=== PATIENT | female | born 1945 | race Caucasian/White ===

== ENCOUNTER 2017-08-31 08:43 | Day surgery (SDC) | payer MEDICARE, MEDICAID ==
[2017-08-31] MEDS ORDERED: Lactated Ringer's 1,000 ML IV ONE (09:59)
[2017-08-31] MEDS ORDERED: Propofol 10 mg/ml Inj (20 ML) ONE (11:25)
[2017-08-31] MEDS ORDERED: Lidocaine 2% MPF (5 ml) Inj ONE (11:25)
[2017-08-31 12:04] VITALS: TEMP 98
[2017-08-31 12:19] VITALS: BP 147/78; PULSE 78; RESP 16; O2SAT 99
== END 2017-08-31 12:19 | disposition home or self-care (01) ==
LOC: H.ENDO 08:43
PROVIDERS: ATTEND Internal Medicine Gastroenterology
DX: Z12.11 Encounter for screening for malignant neoplasm of colon (principal); E11.9 Type 2 diabetes mellitus without complications; E78.5 Hyperlipidemia, unspecified; E03.9 Hypothyroidism, unspecified; I10 Essential (primary) hypertension; K64.1 Second degree hemorrhoids; K62.1 Rectal polyp; K57.30 Diverticulosis of large intestine without perforation or abscess without bleeding; D12.5 Benign neoplasm of sigmoid colon
CPT/HCPCS: 45380; 45385; 88305; J2704; J7120

== ENCOUNTER 2017-11-18 12:26 | Emergency (ER) | payer MEDICARE, MEDICAID ==
--- NOTE | 2017-11-18 13:21 | ED PDOC ---
HPI: General Adult Time Seen by Provider: 11/18/17 12:58 Chief Complaint (Nursing): Flu-like Symptoms Chief Complaint (Provider): Flu-like symptoms History Per: Patient History/Exam Limitations: no limitations Onset/Duration Of Symptoms: Days (x3) Current Symptoms Are (Timing): Still Present Additional Complaint(s): Jenni Medellin is a 72 year old female, with a past medical history of diabetes and hypertension, who was brought to the emergency department via EMS complaining of fever, chest pain, body aches, generalized weakness, and decreased appetite onset for x3 days. Patient reports chest pain with deep breaths. She did not take any medication for symptoms. She denies any coughs, congestion, nausea, vomit or diarrhea. No further medical complaints. PMD: [facility] Past Medical History Reviewed: Historical Data, Nursing Documentation, Vital Signs Vital Signs: Last Vital Signs Temp 100.5 F H 11/18/17 15:39 Pulse 89 11/18/17 15:39 Resp 16 11/18/17 15:39 BP 149/67 11/18/17 15:39 Pulse Ox 97 11/18/17 15:55 - Medical History PMH: Depression, Diabetes, HTN, Hypercholesterolemia, Hypothyroidism - Surgical History Surgical History: No Surg Hx - Family History Family History: States: Unknown Family Hx - Social History Current smoker - smoking cessation education provided: No Alcohol: None Drugs: Denies - Home Medications Home Medications: Ambulatory Orders Medication Instructions Recorded Unobtainable 08/31/17 - Allergies Allergies/Adverse Reactions: Allergies Allergy/AdvReac Type Severity Reaction Status Date / Time No Known Allergies Allergy Verified 08/31/17 09:57 Review of Systems ROS Statement: Except As Marked, All Systems Reviewed And Found Negative Constitutional: Positive for: Fever, Weakness (generalized ), Other (body aches) ENT: Negative for: Nose Congestion Cardiovascular: Positive for: Chest Pain Respiratory: Negative for: Cough Gastrointestinal: Positive for: Other (decreased appetite). Negative for: Nausea, Vomiting, Diarrhea Physical Exam - Reviewed Nursing Documentation Reviewed: Yes Vital Signs Reviewed: Yes - Physical Exam Appears: Positive for: Non-toxic Head Exam: Positive for: ATRAUMATIC, NORMAL INSPECTION, NORMOCEPHALIC Skin: Positive for: Normal Color, Warm, Dry Eye Exam: Positive for: Normal appearance, EOMI, PERRL ENT: Positive for: Normal ENT Inspection Neck: Positive for: Painless ROM, Supple Cardiovascular/Chest: Positive for: Regular Rate, Rhythm. Negative for: Murmur Respiratory: Positive for: Normal Breath Sounds (clar b/l). Negative for: Respiratory Distress Gastrointestinal/Abdominal: Positive for: Normal Exam, Soft. Negative for: Tenderness, Guarding, Rebound Back: Positive for: Normal Inspection. Negative for: L CVA Tenderness, R CVA Tenderness, Vertebral Tenderness Extremity: Positive for: Normal ROM. Negative for: Tenderness, Deformity, Swelling Neurologic/Psych: Positive for: Alert, Oriented. Negative for: Motor/Sensory Deficits - Laboratory Results Result Diagrams: 11/18/17 13:45 11/18/17 13:45 - ECG O2 Sat by Pulse Oximetry: 97 (RA) Pulse Ox Interpretation: Normal Medical Decision Making Medical Decision Making: Initial Impression: Viral illness Initial Plan: --VBG Shock Panel --EKG --CMP --Troponin I --Urine dipstick --CBC w/ differential --PTT --PT --Chest two views (PA/LAT) [RAD] --Tylenol 325mg tab 650 mg PO --Motrin tab 600 mg PO --Blood culture --Urinalysis --Reevaluation 14:16 CXR FINDINGS: LUNGS: No active pulmonary disease. PLEURA: No significant pleural effusion identified. No pneumothorax apparent. CARDIOVASCULAR: No radiographic findings to suggest acute or significant cardiovascular disease. Right shoulder replacement. Severe degenerative changes left shoulder. OSSEOUS STRUCTURES: No significant abnormalities. VISUALIZED UPPER ABDOMEN: Normal. OTHER FINDINGS: None. IMPRESSION: No active disease. 16:30 --Patient will be signed out to Dr. Garcia, pending repeat Troponin and CT angio chest Scribe Attestation: Documented by Deandre Lewis, acting as a scribe for Estela Suarez MD Provider Scribe Attestation: All medical record entries made by the Scribe were at my direction and personally dictated by me. I have reviewed the chart and agree that the record accurately reflects my personal performance of the history, physical exam, medical decision making, and the department course for this patient. I have also personally directed, reviewed, and agree with the discharge instructions and disposition. Disposition - Disposition Forms: [employer] (Maldivian)
[2017-11-18 13:55] LABS: BASO # 0.1 K/uL (0.0-0.2); BASO % 0.6 % (0.0-2.0); EOS # 0.1 K/uL (0.0-0.7); EOS % 0.7 % (0.0-4.0); HEMOGLOBIN 13.9 g/dL (12.0-16.0); LYMPH # 1.4 K/uL (1.0-4.3); LYMPH % 12.2 % (20.0-40.0); MEAN CELL VOLUME 85.6 fl (81.0-99.0); MEAN CORPUSCULAR HEMOGLOBIN 27.7 pg (27.0-31.0); MEAN CORPUSCULAR HGB CONC 32.4 g/dL (33.0-37.0); MEAN PLATELET VOLUME 8.8 fl (7.2-11.7); MONO # 1.4 K/uL (0.0-0.8); NEUT # 8.5 K/uL (1.8-7.0); NEUT % 74.5 % (50.0-75.0); RBC 5.01 Mil/uL (3.80-5.20); RED CELL DISTRIBUTION WIDTH 13.5 % (11.5-14.5); WHITE BLOOD COUNT 11.5 K/uL (4.8-10.8)
[2017-11-18 14:02] LABS: VENOUS BLOOD GAS BASE EXCESS 5.4 mmol/L (0.0-2.0); VENOUS BLOOD GAS PCO2 42 mmHg (40-60); VENOUS BLOOD GAS PO2 35 mm/Hg (30-55); VENOUS BLOOD PH 7.46 (7.32-7.43)
[2017-11-18 14:11] LABS: ALBUMIN 4.2 g/dL (3.5-5.0); ALT/SGPT 31 U/L (9-52); AST/SGOT 28 U/L (14-36); BLOOD UREA NITROGEN 11 mg/dl (7-17); CALCIUM 9.9 mg/dL (8.4-10.2); GFR AFRICAN-AMERICAN > 60; GFR NON-AFRICAN AMERICAN > 60
[2017-11-18 14:28] LABS: SQUAMOUS EPITHIAL 2 /hpf (0-5); URINE BACTERIA RARE (<OCC); URINE BILIRUBIN NEGATIVE (NEGATIVE); URINE BLOOD MODERATE (NEGATIVE); URINE CLARITY SLIGHTY-CLOUDY (Clear); URINE COLOR YELLOW (YELLOW); URINE GLUCOSE (UA) 50 mg/dL (Normal); URINE LEUKOCYTE ESTERASE SMALL Leu/uL (Negative); URINE NITRATE NEGATIVE (NEGATIVE); URINE PROTEIN 30 mg/dL (NEGATIVE)
[2017-11-18 14:37] LABS: INR 1.1 (0.9-1.2); PROTHROMBIN TIME 12.3 Seconds (9.8-13.1)
[2017-11-18 14:38] LABS: PARTIAL THROMBOPLASTIN TIME 27.9 Seconds (25.6-37.1)
--- NOTE | 2017-11-18 15:24 | RAD ---
HISTORY: Fever COMPARISON: No prior. TECHNIQUE: Chest PA and lateral FINDINGS: LUNGS: No active pulmonary disease. PLEURA: No significant pleural effusion identified. No pneumothorax apparent. CARDIOVASCULAR: No radiographic findings to suggest acute or significant cardiovascular disease. Right shoulder replacement. Severe degenerative changes left shoulder. OSSEOUS STRUCTURES: No significant abnormalities. VISUALIZED UPPER ABDOMEN: Normal. OTHER FINDINGS: None. IMPRESSION: No active disease.
[2017-11-18 15:55] VITALS: O2SAT 97
[2017-11-18] MEDS ORDERED: Iodixanol 320 MG/ML 100 ML BOTTLE IV ONE (17:06)
[2017-11-18] MEDS ORDERED: Sodium Chloride 0.9% 50 ML IV ONE (17:06)
--- NOTE | 2017-11-18 18:07 | CT ---
PROCEDURE: CT Chest with contrast (Pulmonary Angiogram) HISTORY: Chest pain, of low-grade fever COMPARISON: None available. TECHNIQUE: Axial computed tomography images were obtained of the chest in the pulmonary arterial phase of enhancement. Coronal and sagittal reformatted images were created and reviewed. Intravenous contrast dose: 90 cc Visipaque 320 Mean Hounsfield unit values in the main pulmonary artery: 252.30 Radiation dose: Total exam DLP = 390.31 mGy-cm. This CT exam was performed using one or more of the following dose reduction techniques: Automated exposure control, adjustment of the mA and/or kV according to patient size, and/or use of iterative reconstruction technique. FINDINGS: PULMONARY ARTERIES: Unremarkable. No pulmonary embolism. AORTA: No acute findings. No thoracic aortic aneurysm. LUNGS: Prominent interstitial markings and thickening of interlobular septa suggests a component of pulmonary vascular congestion. PLEURAL SPACES: Unremarkable. No effusion or pneuomothorax. HEART: Unremarkable. No cardiomegaly. No significant pericardial effusion. LYMPH NODES: No lymphadenopathy. BONES, CHEST WALL: Unremarkable. No fracture or destructive lesion OTHER FINDINGS: Unremarkable. IMPRESSION: Unremarkable CT pulmonary angiogram. No pulmonary embolus.
[2017-11-18 18:51] VITALS: BP 131/61; PULSE 79; RESP 19
--- NOTE | 2017-11-18 18:51 | ED PDOC ---
- Laboratory Results Result Diagrams: 11/18/17 13:45 11/18/17 13:45 - ECG O2 Sat by Pulse Oximetry: 97 (RA) Medical Decision Making Medical Decision Making: Recd pending CTA chest Accession No. : [id number] Patient Name / ID : REILLY CHE / [id number] Exam Date : 11/18/2017 17:07:16 ( Approved ) Study Comment : Sex / Age : F / 72Y Creator : Kishan Byrd MD Dictator : Kishan Byrd MD Director Music : Software Licensing Executive : Kihsan Byrd MD Approver2 : Report Date : 11/18/2017 18:06:29 My Comment : PROCEDURE: CT Chest with contrast (Pulmonary Angiogram) HISTORY: Chest pain, of low-grade fever COMPARISON: None available. TECHNIQUE: Axial computed tomography images were obtained of the chest in the pulmonary arterial phase of enhancement. Coronal and sagittal reformatted images were created and reviewed. Intravenous contrast dose: 90 cc Visipaque 320 Mean Hounsfield unit values in the main pulmonary artery: 252.30 Radiation dose: Total exam DLP = 390.31 mGy-cm. This CT exam was performed using one or more of the following dose reduction techniques: Automated exposure control, adjustment of the mA and/or kV according to patient size, and/or use of iterative reconstruction technique. FINDINGS: PULMONARY ARTERIES: Unremarkable. No pulmonary embolism. AORTA: No acute findings. No thoracic aortic aneurysm. LUNGS: Prominent interstitial markings and thickening of interlobular septa suggests a component of pulmonary vascular congestion. PLEURAL SPACES: Unremarkable. No effusion or pneuomothorax. HEART: Unremarkable. No cardiomegaly. No significant pericardial effusion. LYMPH NODES: No lymphadenopathy. BONES, CHEST WALL: Unremarkable. No fracture or destructive lesion OTHER FINDINGS: Unremarkable. IMPRESSION: Unremarkable CT pulmonary angiogram. No pulmonary embolus. given symptoms per cdc guidelines age >65 treat empiric tamiflu, followup PMD Repeat vitals afebrile, all results explained and family agrees w plan Disposition Counseled Patient/Family Regarding: Studies Performed, Diagnosis, Need For Followup, Rx Given - Clinical Impression Clinical Impression: Influenza-like symptoms, UTI (urinary tract infection) - POA Present On Arrival: None - Disposition Referrals: [facility] [Outside] Disposition: Routine/Home Disposition Time: 20:01 Condition: STABLE Additional Instructions: Drink plenty of fluids, take medications as directed, return to ER for any new or worsening symptoms Prescriptions: Cephalexin [Keflex] 250 mg PO BID #10 capsule Ibuprofen [Motrin Tab] 600 mg PO Q6 PRN #15 tab PRN Reason: Pain, Moderate (4-7) Oseltamivir [Tamiflu] 75 mg PO BID #10 cap Instructions: Flu, Adult (DC), Urinary Tract Infection, Adult (DC) Forms: [employer] (Turkish)
[2017-11-18 19:54] VITALS: TEMP 98.1
--- NOTE | 2017-11-19 19:14 | CARD ---
APPROVED REPORT EKG Measurement Heart [id number] 140P30 [id number] <Conclusion> Normal sinus rhythm Normal ECG
== END 2017-11-18 20:11 | disposition home or self-care (01) ==
LOC: H.ER 12:26
DX: N39.0 Urinary tract infection, site not specified (principal); J11.1 Influenza due to unidentified influenza virus with other respiratory manifestations; E03.9 Hypothyroidism, unspecified; E11.9 Type 2 diabetes mellitus without complications; E78.00 Pure hypercholesterolemia, unspecified; F32.9 Major depressive disorder, single episode, unspecified; I10 Essential (primary) hypertension
CPT/HCPCS: 71046; 71275; 80053; 81003; 82803; 82948; 84484; 85025; 85378; 85610; 85730; 87040; 87086; 87181; 93005; 99284; Q9967